=== PATIENT | female | born 1985 | race Caucasian/White ===

== ENCOUNTER 2019-10-17 14:02 | Emergency (ER) | payer SELFPAY ==
[2019-10-17] MEDS ORDERED: NS 0.9% 1000 ML** 1,000 ML IV.FLUID IV ONE (15:20)
[2019-10-17] MEDS ORDERED: Vancomycin(*) 1,000 MG in NS 0.9% 250 ML* 250 ML IV ONE (15:34)
--- NOTE | 2019-10-17 15:35 | ED ---
Sepsis HPI - HPI Summary HPI Summary: The patient is a 34 year-old female presenting to [facility] with a chief complaint of recent IV substance abuse and related development of sores all over her body worsening today. She reports that she injects heroin and methamphetamine daily, with heroin used this morning but not meth. She states she goes through withdrawal if she does not use heroin every day. Today, she felt her tongue begin to swell, but she is breathing well and does not have any difficulty swallowing. She has sores all over her body secondary to the polysubstance abuse. She denies any cough. She is noted to be febrile and tachycardic in triage. She rates her symptoms 7/10 in severity. She is seeking rehab/detox services. Past medical history includes MRSA. She admits to heavy smoking but no alcohol use. Medications reviewed. Allergies noted. - History of Current Complaint Chief Complaint: EDRashSkinAbscess Time Seen by Provider: 10/17/19 15:01 Stated Complaint: NEEDS DETOX PER PT Hx Obtained From: Patient Onset/Duration: Started Hours Ago, Still Present Onset Severity: Moderate Current Severity: Moderate Pain Intensity: 8 Pain Scale Used: 0-10 Numeric Character: febrile, tachycardic Aggravating Symptom(s): Other: - polysubstance use Alleviating Factor(s): Nothing Associated Signs & Symptoms: Swelling - tongue, Other - diffuse sores on body; Negative: SOB, cough - Allergy/Home Medications Allergies/Adverse Reactions: Allergies Allergy/AdvReac Type Severity Reaction Status Date / Time No Known Allergies Allergy Verified 10/17/19 14:15 Home Medications: Home Medications DOXYcycline CAP(*) [DOXYcycline 100MG CAP(*)] 100 mg PO BID #20 cap 10/17/19 [Rx ] PMH/Surg Hx/FS Hx/Imm Hx Endocrine/Hematology History: Denies: Hx Diabetes Cardiovascular History: Denies: Hx Hypertension Psychiatric History: Reports: Hx Substance Abuse - heroin, meth - Surgical History Surgical History: None Infectious Disease History: Yes Infectious Disease History: Reports: Hx of Known/Suspected MRSA Denies: Traveled Outside the [place] in Last 30 Days - Family History Known Family History: Negative: Renal Disease, Respiratory Disease - Social History Alcohol Use: None Hx Substance Use: Yes Substance Use Type: Reports: Heroin, Other Substance Use Comment - Amount & Last Used: meth Hx Tobacco Use: Yes Smoking Status (MU): Heavy Every Day Tobacco Smoker Review of Systems Positive: Fever - per triage Positive: Other - tongue swelling Positive: Other - tachycardic Negative: Shortness Of Breath, Cough Positive: Other - diffuse body sores All Other Systems Reviewed And Are Negative: Yes Physical Exam - Summary Physical Exam Summary: Appearance: The patient is well-nourished in no acute distress and in no acute pain. Skin: The patient is covered with excoriated skin lesions, many of which have surrounding erythema and are mostly present on her back. The skin is otherwise warm and dry, and skin color reflects adequate perfusion. HEENT: The head is normocephalic and atraumatic. The pupils are equal and reactive. The conjunctivae are clear and without drainage. Nares are patent and without drainage. Mouth reveals moist mucous membranes, and the throat is without erythema and exudate. The tongue does not appear swollen. The external ears are intact. The ear canals are patent and without drainage. The tympanic membranes are intact. Neck: The neck is supple with full range of motion and non-tender. There are no carotid bruits. There is no neck vein distension. There is no cervical lymph adenopathy. Respiratory: Chest is non-tender. Lungs are clear to auscultation and breath sounds are symmetrical and equal. Cardiovascular: Heart is regular rate and rhythm. There is no murmur or rub auscultated. There is no peripheral edema and pulses are symmetrical and equal. Abdomen: The abdomen is soft and non-tender. There are normal bowel sounds heard in all four quadrants and there is no organomegaly palpated. Musculoskeletal: There is no back tenderness noted. Extremities are non-tender with full range of motion. There is good capillary refill. There is no peripheral edema or calf tenderness elicited. Neurological: Patient is alert and oriented to person, place and time. The patient has symmetrical motor strength in all four extremities. Cranial nerves are grossly intact. Deep tendon reflexes are symmetrical and equal in all four extremities. Psychiatric: The patient has an appropriate affect and does not exhibit any anxiety or depression. Triage Information Reviewed: Yes Vital Signs On Initial Exam: Initial Vitals Temp Pulse Resp BP Pulse Ox 100.6 F 100 18 117/67 96 10/17/19 14:14 10/17/19 14:14 10/17/19 14:14 10/17/19 14:14 10/17/19 14:14 Vital Signs Reviewed: Yes Procedures - Sedation Patient Received Moderate/Deep Sedation with Procedure: No Diagnostics - Vital Signs Vital Signs Temp Pulse Resp BP Pulse Ox 10/17/19 14:14 100.6 F 100 18 117/67 96 - Laboratory Result Diagrams: 10/17/19 15:45 10/17/19 15:45 Lab Statement: Any lab studies that have been ordered have been reviewed, and results considered in the medical decision making process. - Radiology Chest X-Ray Radiology Interpretation Completed By: Radiologist Summary of Radiographic Findings: Impression: No active cardiopulmonary disease is noted. This imaging report was reviewed by Dr. Ramires. Sepsis Re-assessment - Sepsis Re-Assessment First Eval Re-Evaluation Time: 19:00 - discussed results and plan for discharge Patient's Vitals Signs: Vital Signs Temp Pulse Resp BP Pulse Ox 10/17/19 19:00 92 18 95 10/17/19 18:54 93 14 100/58 92 10/17/19 18:24 100 17 115/65 92 10/17/19 18:00 101 15 92 10/17/19 17:54 104 19 105/70 92 10/17/19 17:31 22 10/17/19 17:25 114 29 128/63 96 10/17/19 17:00 125 98 10/17/19 16:54 126 144/106 99 10/17/19 16:24 118 126/73 98 10/17/19 16:00 104 97 10/17/19 15:57 98 10/17/19 15:54 114/48 10/17/19 15:33 100 127/64 97 10/17/19 15:22 99 97 10/17/19 14:14 100.6 F 100 18 117/67 96 Cardiovascular: Normal - tachycardia improved to sinus rhythm 92 BPM with fluids and Ativan Course/Dx - Course Course Of Treatment: Ms. Zabala presented with sores all over her body, a slight fever and tachycardia. She admits to daily use of injectable heroin as well as meth. She was agitated and in constant movement. She stated that she had not used any meth today but clinically she appeared to have. She had picking-type wounds all over her body many of which had surrounding erythema and were likely infected. Many of the wounds are ulcerated and clinically looked like staph. She was treated with vancomycin and fluids while labs were obtained. Her labs were all within normal limits however her tachycardia did not resolve and actually got a bit worse. She was given Ativan and this did allow her to rest and her heart rate to slow. I can't tell if her Low-Grade Fever Is Just from Hyperactivity or from the sheer volume of mild skin infection. Given that her labs are within normal limits and her vitals normalized, I'm going to treat her with doxycycline. We spoke with social scientist for her for detox and they're going to call her tomorrow - Differential Dx/Clinical Impression Provider Diagnosis: Cellulitis - Provider Notifications Discussed Care Of Patient With: Keely Bahena - social work Instructed by Provider To: Other - Nurse Jud states she has spoken with Keely, and they plan on contacting the patient for outpatient treatment if she is discharged home. Discharge ED - Sign-Out/Discharge Documenting (check all that apply): Patient Departure - Patient will be discharged home. - Discharge Plan Condition: Stable Disposition: HOME Prescriptions: DOXYcycline CAP(*) [DOXYcycline 100MG CAP(*)] 100 mg PO BID #20 cap Patient Education Materials: Cellulitis (DC) Referrals: [facility] [place] [Outside] - 3 Days Additional Instructions: Please take medication as prescribed. Follow up with your primary care provider in 2-3 days. Return to the emergency department for any new or worsening symptoms. - Billing Disposition and Condition Condition: STABLE Disposition: Home - Attestation Statements Document Initiated by Epifanio: Yes Documenting Scribe: Sheila Lira Provider For Whom Epifanio is Documenting (Include Credential): Tyrel Ramires MD Scribe Attestation: Sheila Narvaez, scribed for Tyrel Ramires MD on 10/17/19 at 2059. Scribe Documentation Reviewed: Yes Provider Attestation: The documentation as recorded by the Sheila seymour accurately reflects the service I personally performed and the decisions made by me, Tyrel Ramires MD Status of Scribtere Document: Viewed
[2019-10-17 15:58] LABS: ABS Basophils 0.1 10^3/ul (0-0.2); ABS Eosinophils 0.1 10^3/ul (0-0.6); ABS Lymphocytes 1.4 10^3/ul (1.0-4.8); ABS Neutrophils 6.6 10^3/ul (1.5-7.7); Eosinophil % 0.7 %; Hematocrit 31 % (35-47); Hemoglobin 10.8 g/dL (12.0-16.0); Lymphocyte % 14.9 %; Mean Corpuscular HGB Conc 34 g/dL (31-36); Mean Corpuscular Hemoglobin 28 pg (27-31); Mean Corpuscular Volume 81 fL (80-97); Mean Platelet Volume 9.2 fL (7.4-10.4); Platelet Count 150 10^3/uL (150-450); Red Cell Distribution Width 14 % (10-15); White Blood Count 9.1 10^3/uL (3.5-10.8)
[2019-10-17 16:16] LABS: INR 1.05 (0.82-1.09)
[2019-10-17 16:18] LABS: ALT 46 U/L (7-52); AST 82 U/L (13-39); Albumin 3.9 g/dL (3.2-5.2); Albumin/Globulin Ratio 1.6 (1-3); Alkaline Phosphatase 73 U/L (34-104); Anion Gap 11 mmol/L (2-11); BUN/Creatinine Ratio 23.5 (8-20); Blood Urea Nitrogen 19 mg/dL (6-24); CO2 Carbon Dioxide 24 mmol/L (22-32); Calcium 8.4 mg/dL (8.6-10.3); Chloride 104 mmol/L (101-111); EGFR African American 98.5 (>60); EGFR Non-African American 81.4 (>60); Globulin 2.5 g/dL (2-4); Glucose 137 mg/dL (70-100); Potassium 2.9 mmol/L (3.5-5.0); Sodium 139 mmol/L (135-145); Total Protein 6.4 g/dL (6.4-8.9); Troponin I 0.02 ng/mL (<0.03)
[2019-10-17 16:22] LABS: HCG Pregnancy < 0.60 mIU/mL
[2019-10-17] MEDS ORDERED: Lorazepam PYXIS KEY PRN (17:19)
[2019-10-17] MEDS ORDERED: LORazepam INJ* 2 MG/ML 1 ML VIAL IV ONE (17:19)
[2019-10-17] MEDS ORDERED: Acetaminophen TAB* 325 MG PO ONE (17:20)
--- NOTE | 2019-10-17 17:55 | PN ---
Progress Note - Progress Note Date of Service: 10/17/19 Note: This provider was contacted by microbiology regarding positive MRSA results from facial swab taken from this patient today. Primary provider was already aware.
[2019-10-17 20:01] VITALS: BP 105/91
--- NOTE | 2019-10-20 05:30 | ED ---
Imaging and Labs Follow Up Follow Up Type: Labs/Cultures Labs/Culture Result: Wound culture sensitivity returns showing sensitivity to doxycycline. Patient Communication/Plan: Pt treated appropriately. Nothing further at this time. Provider Diagnoses: Cellulitis
== END 2019-10-17 20:01 | disposition home or self-care (01) ==
LOC: ED 14:02
DX: L03.90 Cellulitis, unspecified (principal); F17.210 Nicotine dependence, cigarettes, uncomplicated; Z86.14 Personal history of Methicillin resistant Staphylococcus aureus infection; R50.9 Fever, unspecified
CPT/HCPCS: 36415; 71045; 80053; 83605; 84484; 84702; 85025; 85610; 87040; 87070; 87077; 87186; 87205; 87640; 87641; 96361; 96365; 96375; 99283; A9270-GY; J2060; J3370